=== PATIENT | male | born 1965 | race Two or more races ===

== ENCOUNTER 2025-01-10 19:18 | Emergency (ER) | payer OTHER, SELFPAY ==
[2025-01-10 19:20] VITALS: BMI 34.2
--- NOTE | 2025-01-10 19:31 | PD.EDHA ---
ED Headache RME/HPI General Chief Complaint: Dizziness Stated Complaint: RIGHT SIDED HEADACHE, DIZZINESS, EYE PAIN Time Seen by Provider: 01/10/25 19:31 Arrival date/time: 01/10/25 19:18 RME / HPI RME / HPI Narrative: DR. ROBB MAIN ED EVALUATION: Patient presents with right periocular headache radiating to right temporo-parietal region onset at 5 AM constant throughout the day with mild visual disturbance. No UE/LE motor or sensory deficits. Reports nausea and mild right-sided visual disturbance. Symptoms worse with exertion. PMH: Type II DM PSH: Non-contributory Allergies: NKDA Social: Negative Related Data Previous Rx's ?Medication ?Instructions ?Recorded esvoyvvtuw-dxosjrn-sjmttlob 50 1 cap PO Q6H PRN pain #20 caps 01/10/25 mg-325 mg-40 mg capsule promethazine 12.5 mg tablet 12.5 mg PO TID PRN nausea and 01/10/25 vomiting #14 tabs Allergies Allergy/AdvReac Type Severity Reaction Status Date / Time No Known Allergies Allergy Verified 01/10/25 19:20 Review of Systems Review of Systems Systems Reviewed: All systems reviewed, normal except as documented Past Medical History Past Medical History ENDOCRINE: Positive Diabetes Mellitus Type 2 ED Exam Narrative Physical exam: GEN. APPEARANCE: The patient is alert awake oriented X-3 c/o [id number]-pf-josmuqea GENTILE, lying down comfortably, does not look ill/toxic. Patient has good eye contact. Patient is cooperative. VITALS: All vitals were reviewed and the pulse ox is 96%, which is normal according to my interpretation HEENT: Normocephalic, atraumatic and noted allodynia to right temporal region. Eye disc sharp. Oral mucosa is moist. NECK: Supple, nontender, no meningismus, no JVD. There is no thyromegaly and no lymphadenopathy. CHEST: Nontender on palpation no deformity and no crepitus. CARDIOVASCULAR: Heart regular rhythm, no murmur or gallop rub or extra beats. LUNGS: Clear to auscultation bilaterally with symmetrical chest rise. No laboring tachypnea or wheezing. No intercostal subcostal retraction. No rales and no rhonchi. ABDOMEN: Soft, flat, nontender to palpation, no guarding or rebound tenderness. There are no abnormal masses palpated. No pulsatile masses or bruits. Active and normal bowel sounds. EXTREMITIES: Normal inspection and palpation. No edema. No cyanosis. Patient is able to move all 4 extremities well SKIN: Warm and dry, no rashes noted. MUSCULOSKELETAL: No lumbar or midline bony tenderness. There is no CVA tenderness. No paraspinal muscle spasm or tenderness. NEURO: Cranial nerves II through XII grossly intact. Gait observed to be normal, including tandem. PSYCHIATRIC: Patient is in normal mood and affect, cooperative. LYMPHATICS: No major lymphadenopathy noted. Course Quality Measures none Orders Category Date Time Status CT head/brain wo con Stat Exams 01/10/25 19:36 Completed CBC [CBC] Stat Lab 01/10/25 19:55 Completed CMP [Comprehensive Metabolic Panel] Stat Lab 01/10/25 19:55 Completed ESR [Sed Rate (ESR)] Stat Lab 01/10/25 19:55 Completed Urinalysis, C/S if Indicated Stat Lab 01/10/25 21:15 Completed Dexamethasone Inj [Decadron Inj] Med 01/10/25 19:45 Discontinued 10 mg IV X1 ONE Dexamethasone Inj [Decadron Inj] 10 mg Med 01/10/25 19:36 Discontinued Sodium Chloride 0.9% [Ns] 100 ml IV X1 Morphine* Inj Med 01/10/25 19:37 Discontinued 4 mg IVP X1 ONE Prochlorperazine Inj [Compazine Inj] Med 01/10/25 19:36 Discontinued 5 mg IV X1 ONE Vital Signs Vital signs: Vital Signs Temperature 98 F 01/10/25 19:45 Pulse Rate 77 01/10/25 19:45 Respiratory Rate 19 01/10/25 19:45 Blood Pressure 138/88 H 01/10/25 19:45 Pulse Oximetry (%) 96 01/10/25 19:45 Oxygen Delivery Method Room Air 01/10/25 19:45 Headache MDM Narrative MDM Narrative:: Scribe Attestation: Stacia Saucedo am scribing for and in the presence of Dr. Lindsey. Provider Notation: Although this document has been carefully reviewed, there may still be some phonetic and other typographical errors. These errors are purely grammatical due to imperfections in the software program and should not be construed in any way to compromise the substance of the patient's medical care during this visit. Patient presents with right periocular headache radiating to right temporal-parietal region onset at 5 AM constant throughout the day with mild visual disturbance. No UE/LE motor or sensory deficits. Please see PE findings. Laboratory markers, including CBC and serum chemistries, were essentially unremarkable. CT also without acute process. Patient was treated with a combination IV narcotic analgesics/phenylthiazine, and steroid with marked overal improvement. Suspect migranous headache. Final diagnosis is acute migraine headache. Patient data External records reviewed:: [facility] previous records (No prior ED records available for review) Clinical information provided by:: patient Social determinants that could affect healthcare access:: none Patient has the following chronic illnesses:: Type II DM How is presenting disease/condition affected by chronic disease/condition?: exacerbated by Evaluation data The following diagnostics were reviewed and interpreted by me:: lab results and radiology exam(s) Lab and/or radiology exams considered but not ordered:: None Interpretation Summary: RADIOLOGY Head/Brain CT: Findings: No significant ventricular enlargement. Intra-axial or extra-axial hemorrhage density is not seen. No mass effect or midline shift Basal cisterns are not remarkable. Fourth ventricle is midline. Cranial vault intact. Impression: Negative for acute hemorrhage, mass effect or midline shift Advise clinical correlation and follow-up accordingly Medications / Prescriptions Medications or Prescriptions considered but not ordered:: None Medication administrations:: Medication Administration History Discontinued Medications Dexamethasone Sodium Phosphate (Dexamethasone Sod Phos Inj 10 Mg/Ml Vial) 10 mg IV X1 ONE Stop: 01/10/25 19:46 Last Admin: 01/10/25 20:26 Dose: 10 mg Documented By: LINNETTE Dexamethasone Sodium Phosphate (10 mg/ Sodium Chloride) 101 mls @ 101 mls/hr IV X1 ONE Stop: 01/10/25 19:37 Last Admin: 01/10/25 19:42 Dose: Not Given Documented By: BD Non-Admin Reason: Cancelled by Provider Morphine Sulfate (Morphine Sulf Inj 4 Mg/Ml Vial) 4 mg IVP X1 ONE Stop: 01/10/25 19:38 Last Admin: 01/10/25 20:25 Dose: 4 mg Documented By: LINNETTE Prochlorperazine Edisylate (Prochlorperazine Inj 5 Mg/Ml Vial 2 Ml) 5 mg IV X1 ONE; Protocol Stop: 01/10/25 19:37 Last Admin: 01/10/25 20:26 Dose: 5 mg Documented By: LINNETTE See above if any Consultations Consultation(s) initiated? (list below): No Diagnosis Differential diagnosis headache: migraine, tension headache, subarachnoid hemorrhage, headache, meningitis and sinusitis Most likely diagnosis given after review of the tests above:: Acute Migraine Headache Admission Indicated Admission indicated?: not indicated Explain why admission is indicated or not indicated:: Patient does not meet admission criteria Admission Request Was there a request for admission?: No Disposition Plan Disposition Plan: Discharge Discharge Attestation Discharge Attestation: The patient and all family members were given an opportunity to ask questions and understood the discharge instructions. Discharge instructions specifically effects, indications for sooner follow up or return to the emergency department, and the expected course of current diagnosis. Patient condition: Stable Discharge Plan Plan Patient Disposition: HOME (Self Care) Prescriptions/Referrals Referrals: No Primary/Family,Physician [Referring Provider] - In 1 week Problem List Clinical Impression: Migraine, Migraine headache Patient/Caregiver Discharge Instructions Education Materials: Migraines and Cluster Headaches, Headache Migraine Triggers Prevent Additional Instructions: Ice compresses, cold darkroom, medication as directed, follow-up with primary care doctor as needed return if worse Print Language: Taiwanese Stand Alone Forms: Sydnee Award Info., Patient Portal Info Letter
--- NOTE | 2025-01-10 19:33 | PC.NURSE ---
NOT A STROKE ALERT PER DR. KOWALSKI.
--- NOTE | 2025-01-10 19:36 | XR_ITS ---
Examination: CT brain head without contrast. 2-D sagittal coronal reconstructions Date and time of exam: January 10, 20252012 hours INDICATIONS: Dizziness eye pain today CTDI: vol (mGy): 53.4 DLP: (mGycm): 1082 Technique: Multiple CT axial sections of the brain have been obtained, 5 mm slice thickness. Contrast has not been administered. 2-D sagittal, coronal reconstructions have been obtained Low dose protocols were performed. One or more of the following dose reduction techniques were used; automated exposure control, adjustment of the mA and/or KV according to patient size, use of iterative reconstruction technique. Findings: No significant ventricular enlargement. Intra-axial or extra-axial hemorrhage density is not seen. No mass effect or midline shift Basal cisterns are not remarkable. Fourth ventricle is midline. Cranial vault intact. Impression: Negative for acute hemorrhage, mass effect or midline shift Advise clinical correlation and follow-up accordingly
[2025-01-10 19:45] VITALS: BP 138/88; PULSE 77; RESP 19; TEMP 36.6; O2SAT 96
[2025-01-10 20:21] LABS: Basophils # (Auto) 0.1 Thou/mm3 (0.0-0.2); Basophils % (Auto) 1 % (0-2.5); Eosinophils # (Auto) 0.2 Thou/mm3 (0.0-0.5); Eosinophils % (Auto) 3 % (0-10); Hematocrit 44.6 % (41.0-53.0); Hemoglobin 15.4 g/dL (13.5-16.0); Immature Granulocytes Auto 0.02 Thou/mm3 (0.00-0.00); Lymphocytes # (Auto) 3.5 Thou/mm3 (1.0-4.8); Lymphocytes % (Auto) 46 % (10-50); Mean Corpuscular HGB Conc 34.5 g/dl (31.0-37.0); Mean Corpuscular Hemoglobin 29.8 pg (25.0-35.0); Mean Corpuscular Volume 86 fL (80-100); Monocytes # (Auto) 0.6 Thou/mm3 (0.0-0.8); Monocytes % (Auto) 8 % (0-12); Neutrophils # (Auto) 3.3 Thou/mm3 (1.8-7.7); Neutrophils % (Auto) 43 % (37-80); Nucleated Red Blood Cell # 0.00 Thou/mm3 (0.00-0.00); Nucleated Red Blood Cell % 0 /100 WBC (0); Platelet Count 238 Thou/mm3 (140-440); RDW Standard Deviation 42.5 fL (35.1-43.9); Red Blood Count 5.17 Miln/mm3 (4.50-5.90); White Blood Count 7.7 Thou/mm3 (3.8-10.6)
[2025-01-10 20:22] LABS: Sed Rate (ESR) 10 mm/hr (0-20)
[2025-01-10] MEDS: MORPHINE SULF INJ 4 MG/ML VIAL IVP (20:25)
[2025-01-10] MEDS: PROCHLORPERAZINE INJ 5 MG/ML VIAL 2 ML IV (20:26)
[2025-01-10] MEDS: DEXAMETHASONE SOD PHOS INJ 10 MG/ML VIAL IV (20:26)
[2025-01-10 20:29] LABS: Alanine Aminotransferase 75 U/L (10-49); Albumin, Serum 4.9 gm/dL (3.5-5.0); Albumin/Globulin Ratio 2.1 (1.2-2.2); Alkaline Phosphatase 72 U/L (46-116); Anion Gap 10 (7-16); Aspartate Amino Transferase 41 U/L (0-34); BUN/Creatinine Ratio 9 Ratio (12-20); Bilirubin,Total 0.3 mg/dL (0.3-1.2); Blood Urea Nitrogen 9 mg/dL (9-23); Calcium 10.0 mg/dL (8.3-10.6); Calcium (Corrected) 10.0 mg/dL (8.5-10.1); Carbon Dioxide 25.9 mMol/L (20.0-31.0); Chloride 105 mMol/L (98-107); Creatinine (Component) 1.0 mg/dL (0.6-1.3); Estimated Creatinine Clearance 94.4 mL/min (>60); Globulin 2.3 gm/dL (2.3-3.5); Glucose 125 mg/dL (74-106); Osmolality,Calculated 280 (275-295); Potassium 4.1 mMol/L (3.4-5.1); Sodium 141 mMol/L (136-145); Total Protein 7.2 gm/dL (5.7-8.2); eGFR > 60 See Note
[2025-01-10 21:19] LABS: Collection Type, Urine Clean Catch
[2025-01-10 21:38] LABS: Bilirubin,Urine Negative (Negative); Blood,Urine Negative (Negative); Clarity,Urine Clear (Clear/Hazy); Color,Urine Lt-Yellow (Lt Yel-Yel); Culture Indicated,Urine Not Indicated; Glucose, Urine 4+ (Negative); Ketones,Urine Negative (Negative); Leukocyte Esterase,Urine Negative (Negative); Nitrite,Urine Negative (Negative); PH,Urine 7.0 (5.0-7.0); Protein,Urine Negative (Neg - Trace); RBC,Urine 2 /hpf (0-3); Specific Gravity,Urine 1.027 (1.001-1.035); Squamous Epithelial Cell,Urine 1 /hpf (0-5); Urobilinogen,Urine Negative mg/dL (0.0-1.0); WBC,Urine < 1 /hpf (0-5)
== END 2025-01-10 23:17 | disposition home or self-care (01) ==
PROVIDERS: Emergency Provider Emergency Medicine; PCP Family Medicine
DX: G43.909 Migraine, unspecified, not intractable, without status migrainosus (principal); E11.9 Type 2 diabetes mellitus without complications
CPT/HCPCS: 36415; 70450; 80053; 81001; 85025; 85652; 96374; 96375; 99283; J0780; J1100; J2270